=== PATIENT | female | born 1960 | race Native Hawaiian/Other Pacific Islander ===

== ENCOUNTER 2022-10-06 10:40 | Emergency (ER) | payer BC, MEDICAID, SELFPAY ==
[2022-10-06 10:52] VITALS: BP 115/69; PULSE 61; RESP 20; TEMP 36.6; O2SAT 100; BMI 18.9
[2022-10-06 12:48] VITALS: BP 113/75; PULSE 55; O2SAT 99
--- NOTE | 2022-10-06 15:06 | ED_ITS ---
HPI - General Adult General Date Seen: 10/06/22 Chief complaint: GI Bleed Stated complaint: Diarrhea, bleeding in stool, midback pain, fatigue Time Seen by Provider: 10/06/22 14:19 Source: patient Mode of arrival: ambulatory Limitations: no limitations History of Present Illness HPI narrative: Patient is a 62-year-old female presents here with her daughter, she speaks Irish, and through the legal support specialist she has had a 4-5 day history of increasing cramping, mild abdominal discomfort, and some blood in her stools, the blood is not completely through her stools, seems to be dark in nature, and only which shows a bowel movement. No history of fevers chills or sweats, she has had no nausea vomiting. She has a history of ulcerative colitis, for many years, her medications are on the [facility] medical record, and we will try to get a copy of those. She recently saw her primary physician who started her on Pepcid and trazodone, she is followed by [facility] for her colitis. Denies any alcohol, smoking, or any illicit substances. No history of coughing wheezing shortness of breath chest pain, dysuria frequency, she is eating okay, but it seems every time she eats she has a bowel movement. Related Data Home Medications Medication Instructions Recorded Confirmed balsalazide 750 mg capsule 2,250 mg PO TID 10/06/22 10/06/22 trazodone 50 mg tablet 25 mg PO .PM, Daily 10/06/22 10/06/22 Previous Rx's Medication Instructions Recorded ciprofloxacin HCl 500 mg tablet 500 mg PO BID #20 tabs 10/06/22 (Cipro) prednisone 20 mg tablet 20 mg PO BID #10 tabs 10/06/22 Allergies Allergy/AdvReac Type Severity Reaction Status Date / Time lactose Allergy Verified 10/06/22 11:03 Review of Systems Status of ROS: Reports: 10 or more systems reviewed and unremarkable except as noted in History and below PFSH PFS Social History Smoking Status: Never smoker Do you use any of these nicotine containing products: None Second hand tobacco smoke exposure: No How often do you have a drink containing alcohol: never AUDIT-C Alcohol total score: 0 Non-prescribed substance use: denies use Exam Narrative: Exam Narrative: Patient is speaking normally, no problem with slurring words, oriented x3. Head eyes ears nose and throat exam show equal pupils, no scleral icterus, extraocular muscles are normal, no facial droop, speech is normal, trachea normal and midline. Thyroid normal midline palpable not enlarged. Chest shows symmetrical rise bilaterally, normal auscultation with no wheezes, no increased work of breathing, no overt bruising or lesions seen, no tenderness is noted on auscultation. Heart sounds normal with no S3-S4 no murmurs clicks or gallops. Abdomen shows no obvious masses or hepatosplenomegaly, no organomegaly, bowel sounds are normal in all quadrants. Very mild tenderness is noted periumbilically, Upper and lower extremities show normal power, normal range of motion, pulses are normal, sensations normal, fine motor movements are normal, pelvis is stable to rocking. Cervical spine shows normal range of motion, and palpably not tender. Thoracic spine shows normal range of motion, and palpably not tender, lumbar spine shows no tenderness to palpation percussion and is otherwise normal range of motion. Skin shows no rashes, petechiae or eccymosis. Skin reveals no rashes, With the nurse Sisi of present, rectal exam is done which shows no evidence of blood on examining finger, and stained Hemoccult negative. She was able to leave is a C diff specimen Const: Vital Signs, click to edit/add: Vital Signs - 24 hr 10/06/22 10:52 10/06/22 12:48 10/06/22 17:01 Temperature 97.9 F Pulse Rate [Pulse Oximeter] 61 55 L 66 Respiratory Rate 20 16 Blood Pressure [Ri ght Upper Arm] 115/69 113/75 118/69 Pulse Oximetry 100 99 100 Oxygen Delivery Me thod Room Air Room Air Room Air Course Course Hospital Course: Spoke to patient and daughter, through my nurse hot shower we did the interpretation and also the daughter I think it would be reasonable to treat her with some prednisone for 5 days along with some antibiotics, if for C diff comes back positive we will have her not feel the Cipro prescription instead put her on some vancomycin. I think this is unlikely but still possible. She will call her GI doctor on Saturday, inform them of which she is she will continue with the rest of the medication follow-up will be in the ER if she has worsening. Vital Signs Vital signs: Initial Vital Signs Temperature 97.9 F 10/06/22 10:52 Temperature Source Temporal Artery Scan 10/06/22 10:52 Pulse Rate 61 10/06/22 10:52 Respiratory Rate 20 10/06/22 10:52 Blood Pressure 115/69 10/06/22 10:52 Blood Pressure Mean 84 10/06/22 10:52 Blood Pressure Position Supine 10/06/22 10:52 Pulse Oximetry 100 10/06/22 10:52 Oxygen Delivery Method 10/06/22 10:52 Vital Signs Temperature 97.9 F 10/06/22 10:52 Pulse Rate 61 10/06/22 10:52 Respiratory Rate 20 10/06/22 10:52 Blood Pressure 115/69 10/06/22 10:52 Pulse Oximetry 100 10/06/22 10:52 Oxygen Delivery Method 10/06/22 10:52 Temperature 97.9 F 10/06/22 10:52 Pulse Rate 66 10/06/22 17:01 Respiratory Rate 16 10/06/22 17:01 Blood Pressure 118/69 10/06/22 17:01 Pulse Oximetry 100 10/06/22 17:01 Oxygen Delivery Method 10/06/22 17:01 Medical Decision Making MDM Narrative Medical decision making narrative: During the evaluation of this patient I considered multiple differential diagnosis including life-threatening differentials which are appendicitis, aortic aneurysm, mesenteric ischemia, bowel perforation, ectopic , volvulus and bowel obstruction, other differential diagnosis include but are not limited to inflammatory bowel disease, cholecystitis, pancreatitis, hepatitis, gastritis, GERD, diverticulitis, peptic ulcer disease, pyelonephritis/UTI, renal colic/stone, pelvic inflammatory disease, cervicitis, endometritis, intrauterine , dysfunctional uterine bleeding, ovarian cyst/torsion, spontaneous as well as other etiologies Lab Data Labs: Lab Results 10/06/22 10/06/22 10/06/22 Range/Units 15:05 15:30 15:30 WBC 6.40 (4.50-11.00) K/uL RBC 3.75 L (4.00-5.20) m/uL Hgb 12.1 (12.0-16.0) gm/dL Hct 35.2 (33.0-51.0) % MCV 94 (80-100) fL MCH 32 (26-34) pg MCHC 34 (32-36) gm/dL RDW Coeff of Melisa 12.1 (11.5-15.5) % Plt Count 144 (140-440) K/uL Neut % (Auto) 39.7 L (42.0-72.0) % Lymph % (Auto) 49.5 H (20-44) % [place] % (Auto) 6.1 (0.0-11.0) % Eos % (Auto) 3.9 (0.0-7.0) % Baso % (Auto) 0.6 (0.0-3.0) % Neut # (Auto) 2.50 (1.7-7.0) K/uL Lymph # (Auto) 3.20 H (0.90-2.90) K/uL [place] # (Auto) 0.40 (0.00-0.90) K/UL Eos # (Auto) 0.25 (0.00-0.50) K/uL Baso # (Auto) 0.04 (0.00-0.30) K/uL Sodium 139 (135-149) mmol/L Potassium 3.2 L (3.6-5.1) mmol/L Chloride 110 (96-114) mmol/L Carbon Dioxide 24 (20-32) mmol/L BUN 7 (7-30) mg/dL Creatinine 0.5 (0.5-1.5) mg/dL Estimated Creat Clear 42.30 Estimated GFR 107 ml/min Glucose 83 (60-115) mg/dL Lactate (0.5-1.9) mmol/L Calcium 8.1 L (8.4-10.6) mg/dL Total Bilirubin 0.4 (0.1-1.5) mg/dL Direct Bilirubin 0.0 (0.0-0.5) mg/dL AST 20 (12-35) U/L ALT 12 (4-35) U/L Alkaline Phosphatase 77 (40-150) U/L C-Reactive Protein < 0.5 L (0.5-1.0) mg/dL Total Protein 6.5 (6.0-8.3) g/dL Albumin 3.8 (3.3-5.0) g/dL SARS-CoV-2 (PCR) Negative SARS-CoV-2 (Negative) Influenza Type A (PCR) Negative PCR FLU A (Negative) Influenza Type B (PCR) Negative PCR FLU B (Negative) RSV (PCR) Negative PCR RSV (Negative) 10/06/22 Range/Units 15:30 WBC (4.50-11.00) K/uL RBC (4.00-5.20) m/uL Hgb (12.0-16.0) gm/dL Hct (33.0-51.0) % MCV (80-100) fL MCH (26-34) pg MCHC (32-36) gm/dL RDW Coeff of Melisa (11.5-15.5) % Plt Count (140-440) K/uL Neut % (Auto) (42.0-72.0) % Lymph % (Auto) (20-44) % [place] % (Auto) (0.0-11.0) % Eos % (Auto) (0.0-7.0) % Baso % (Auto) (0.0-3.0) % Neut # (Auto) (1.7-7.0) K/uL Lymph # (Auto) (0.90-2.90) K/uL [place] # (Auto) (0.00-0.90) K/UL Eos # (Auto) (0.00-0.50) K/uL Baso # (Auto) (0.00-0.30) K/uL Sodium (135-149) mmol/L Potassium (3.6-5.1) mmol/L Chloride (96-114) mmol/L Carbon Dioxide (20-32) mmol/L BUN (7-30) mg/dL Creatinine (0.5-1.5) mg/dL Estimated Creat Clear Estimated GFR ml/min Glucose (60-115) mg/dL Lactate 0.8 (0.5-1.9) mmol/L Calcium (8.4-10.6) mg/dL Total Bilirubin (0.1-1.5) mg/dL Direct Bilirubin (0.0-0.5) mg/dL AST (12-35) U/L ALT (4-35) U/L Alkaline Phosphatase (40-150) U/L C-Reactive Protein (0.5-1.0) mg/dL Total Protein (6.0-8.3) g/dL Albumin (3.3-5.0) g/dL SARS-CoV-2 (PCR) (Negative) Influenza Type A (PCR) (Negative) Influenza Type B (PCR) (Negative) RSV (PCR) (Negative) Discharge Plan Discharge Clinical Impression: Ulcerative colitis, acute Patient Disposition: Home w/ Parent or Adult Condition: Stable Instructions: Ulcerative Colitis (ED), Colitis (ED) Additional Instructions: Home rest. Use of prednisone along with the Cipro antibiotic, please call your GI provider on Saturday. We will call you if stool test is positive and put you on a different antibiotic and have you stop the Cipro. Continue with your other medications. [place] en casa. Uso de prednisona junto con el antibi?yvette Cipro, llame a alvarado proveedor gastrointestinal el . Lo llamaremos si la prueba de heces es positiva y le administraremos un antibi?yvette diferente y le pediremos que suspenda el Cipro. Contin?e con edmundo otros medicamentos. Prescriptions: New ciprofloxacin HCl [Cipro] 500 mg tablet 500 mg PO BID Qty: 20 0RF prednisone 20 mg tablet 20 mg PO BID Qty: 10 0RF No Action trazodone 50 mg tablet 25 mg PO .PM, Daily balsalazide 750 mg capsule 2,250 mg PO TID Follow Up/Referrals: Provider,Not a Local [Primary Care Provider] - Stand Alone Forms: [employer] Info Instructions
[2022-10-06 15:35] LABS: Lactate* 0.8 mmol/L (0.5-1.9)
[2022-10-06 15:36] LABS: Basophils Absolute Auto 0.04 K/uL (0.00-0.30); Basophils Percent Auto 0.6 % (0.0-3.0); Eosinophils Absolute Auto 0.25 K/uL (0.00-0.50); Eosinophils Percent Auto 3.9 % (0.0-7.0); Hematocrit 35.2 % (33.0-51.0); Hemoglobin* 12.1 gm/dL (12.0-16.0); Immature Granulocytes Abs Auto 0.01 K/uL (0.00-0.30); Immature Granulocytes Pct Auto 0.2 %; Lymphocytes Percent Auto 49.5 % (20-44); Mean Corpuscular HGB Conc 34 gm/dL (32-36); Mean Corpuscular Hemoglobin 32 pg (26-34); Mean Corpuscular Volume 94 fL (80-100); Monocytes Percent Auto 6.1 % (0.0-11.0); Neutrophils Percent Auto 39.7 % (42.0-72.0); Platelet Count* 144 K/uL (140-440); RDW Coefficient of Variation % 12.1 % (11.5-15.5); Red Blood Count 3.75 m/uL (4.00-5.20)
[2022-10-06 15:38] LABS: Slide Review Reflex No
[2022-10-06 15:52] LABS: PCR FLU A Negative PCR FLU A (Negative); PCR FLU B Negative PCR FLU B (Negative); PCR RSV Negative PCR RSV (Negative)
[2022-10-06 15:54] LABS: SARS PCR* Negative SARS-CoV-2 (Negative)
[2022-10-06 15:56] LABS: Albumin* 3.8 g/dL (3.3-5.0); Chloride* 110 mmol/L (96-114); Sodium* 139 mmol/L (135-149)
[2022-10-06 15:57] LABS: Potassium* 3.2 mmol/L (3.6-5.1)
[2022-10-06 15:58] LABS: Creatinine* 0.5 mg/dL (0.5-1.5); Estimated Glomerular Filt Rate 107 ml/min
[2022-10-06 15:59] LABS: Alanine Aminotransferase* 12 U/L (4-35); Alkaline Phosphatase* 77 U/L (40-150); Aspartate Amino Transferase* 20 U/L (12-35); Bilirubin Total* 0.4 mg/dL (0.1-1.5); Blood Urea Nitrogen* 7 mg/dL (7-30); Carbon Dioxide* 24 mmol/L (20-32); Glucose* 83 mg/dL (60-115); Total Protein* 6.5 g/dL (6.0-8.3)
[2022-10-06 16:00] LABS: Calcium* 8.1 mg/dL (8.4-10.6)
[2022-10-06 16:03] LABS: C Reactive Protein* < 0.5 mg/dL (0.5-1.0)
[2022-10-06 17:01] VITALS: BP 118/69; PULSE 66; RESP 16; O2SAT 100
[2022-10-06 17:37] LABS: C.Difficile Negative (Negative); CDIFFEPI 027 PRESUMPTIVE NEGATIVE (Negative)
== END 2022-10-06 17:00 | disposition home or self-care (01) ==
PROVIDERS: Emergency Provider Family Medicine
DX: K51.90 Ulcerative colitis, unspecified, without complications (principal)
CPT/HCPCS: 36415; 80048; 80076; 83605; 85025; 86140; 87493; 87502; 87634; 87635; 96374; 99284

== ENCOUNTER 2023-06-11 16:02 | Emergency (ER) | payer BC, MEDICAID, SELFPAY ==
[2023-06-11 16:10] VITALS: BP 116/68; PULSE 54; RESP 14; TEMP 36.5; O2SAT 99; BMI 20.8
--- NOTE | 2023-06-11 16:56 | ED.GENADULT ---
HPI - General Adult General Date Seen: 06/11/23 Chief complaint: Skin/Abscess/Foreign Body Stated complaint: Rash on L arm/back/chest Time Seen by Provider: 06/11/23 16:48 Source: patient Mode of arrival: ambulatory History of Present Illness HPI narrative: Patient is 63-year-old female presenting to the emergency department for a rash on her left arm left side of her neck and her back. She states the symptoms were 1st noticed yesterday at 18:30. She denies ever having issues with allergies before. States the rash is itchy but Benadryl has helped. She does take Benadryl last night. Denies any changes to soaps, detergent, medications, or anything else. She is unsure what could have caused the symptoms. She had a mild headache yesterday that resolved. Denies chest pain, shortness of breath, abdominal pain, diarrhea, constipation, fevers, chills, lightheadedness, dizziness. Related Data Home Medications Medication Instructions Recorded Confirmed balsalazide 750 mg capsule 2,250 mg PO TID 10/06/22 06/11/23 Previous Rx's Medication Instructions Recorded prednisone 50 mg tablet 50 mg PO DAILY #4 tabs 06/11/23 Allergies Allergy/AdvReac Type Severity Reaction Status Date / Time lactose Allergy Verified 10/06/22 11:03 Review of Systems Status of ROS: Reports: 10 or more systems reviewed and unremarkable except as noted in History and below [facility] Social History Smoking Status: Never smoker Do you use any of these nicotine containing products: None Second hand tobacco smoke exposure: No How often do you have a drink containing alcohol: never AUDIT-C Alcohol total score: 0 Non-prescribed substance use: denies use Exam Narrative: Exam Narrative: Const: Well-nourished, Well-developed, in mild distress Eyes: PERRL, no conjunctival injection, and symmetrical lids HENT: Atraumatic external nose and ears. Moist mucous membranes. Neck: Symmetric, trachea midline, No thyromegaly. CVS: RRR, No murmurs or gallops. Peripheral pulses 2+ and equal in all extremities RESP: Unlabored respiratory effort. Clear to auscultation bilaterally. GI: Nontender/Nondistended, No rebound or guarding. MSK:Extremities w/o deformity, Normal Active ROM Skin: Warm, Dry. Urticaria seen on patient's left upper arm left neck and on her right lower back Neuro: Normal Muscle tone, No focal neurological deficits. Psych: Awake, Alert, & Oriented x3. Appropriate mood and affect. Const: Vital Signs, click to edit/add: Vital Signs - 24 hr 06/11/23 16:10 Temperature 97.7 F Pulse Rate [Pulse Oximeter] 54 L Respiratory Rate 14 Blood Pressure [Ri ght Upper Arm] 116/68 Pulse Oximetry 99 Oxygen Delivery Me thod Room Air Course Vital Signs Vital signs: Initial Vital Signs Temperature 97.7 F 06/11/23 16:10 Temperature Source Temporal Artery Scan 06/11/23 16:10 Pulse Rate 54 L 06/11/23 16:10 Pulse Rhythm Regular 06/11/23 16:10 Respiratory Rate 14 06/11/23 16:10 Blood Pressure 116/68 06/11/23 16:10 Blood Pressure Mean 84 06/11/23 16:10 Blood Pressure Position Sitting 06/11/23 16:10 Pulse Oximetry 99 06/11/23 16:10 Oxygen Delivery Method Room Air 06/11/23 16:10 Vital Signs Temperature 97.7 F 06/11/23 16:10 Pulse Rate 54 L 06/11/23 16:10 Respiratory Rate 14 06/11/23 16:10 Blood Pressure 116/68 06/11/23 16:10 Pulse Oximetry 99 06/11/23 16:10 Oxygen Delivery Method Room Air 06/11/23 16:10 Temperature 97.7 F 06/11/23 16:10 Pulse Rate 54 L 06/11/23 16:10 Respiratory Rate 14 06/11/23 16:10 Blood Pressure 116/68 06/11/23 16:10 Pulse Oximetry 99 06/11/23 16:10 Oxygen Delivery Method Room Air 06/11/23 16:10 Medical Decision Making [facility] Narrative Medical decision making narrative: Patient is a 63 year female presents to emergency department for what appears to be an allergic rash. There is urticaria seen on her body. There is associated itchiness that she says resolves when she takes Benadryl. Does take Benadryl yesterday. She cannot think of any changes that would have caused the symptoms. Had a headache yesterday otherwise feeling fine today. Is not having any signs of anaphylaxis at this time. Vital signs is stable. She is otherwise doing well it we can start her on prednisone for urticaria. She will be discharged home with the prednisone and she is agreeable to this plan. I cannot say for certain what caused the rash but does appear to be allergic in nature. Discharge Plan Discharge Clinical Impression: Urticaria Patient Disposition: Home, Self-Care Condition: Stable Instructions: Urticaria (ED) Additional Instructions: Take Benadryl as needed for the itchiness. Take prednisone daily for the next 4 days starting tomorrow Prescriptions: New prednisone 50 mg tablet 50 mg PO DAILY Qty: 4 0RF Rx Instructions: Start taking medication on 06/12/2023 No Action balsalazide 750 mg capsule 2,250 mg PO TID Follow Up/Referrals: Provider,Not a Local [Primary Care Provider] - Stand Alone Forms: [employer] Info Instructions
[2023-06-11] MEDS: diphenhydrAMINE 25 MG CAPSULE PO (17:04)
[2023-06-11] MEDS: predniSONE 10 MG TABLET 50 MG PO (17:04)
== END 2023-06-11 17:16 | disposition home or self-care (01) ==
PROVIDERS: Emergency Provider Student in an Organized Health Care Education/Training Program
DX: L50.9 Urticaria, unspecified (principal)
CPT/HCPCS: 99282; 99283; A9270; J7512